=== PATIENT | male | born 1960 | race Caucasian/White ===

== ENCOUNTER → 2016-06-28 | Outpatient (CLI) | payer OTHER ==
[2016-06-28 10:44] LABS: ALT 39 U/L (21-72); AST 42 U/L (17-59); Alkaline Phosphatase 93 U/L (38-126); Anion Gap 13 mmol/L; Blood Urea Nitrogen 27 mg/dL (9-20); Calcium 9.5 mg/dL (8.4-10.2); Carbon Dioxide 21 mmol/L (22-30); Chloride 107 mmol/L (98-107); Cholesterol 127 mg/dL (<200); Glucose 148 mg/dL (74-99); HDL Cholesterol 46 mg/dL (40-60); Non-African American GFR(MDRD) 55 (>60 ml/min/1.73 sqM); Potassium 4.9 mmol/L (3.5-5.1); Sodium 141 mmol/L (137-145); Total Bilirubin 0.8 mg/dL (0.2-1.3); Total Protein 8.2 g/dL (6.3-8.2); Triglycerides 175 mg/dL (<150)
== END | disposition home or self-care (01) ==
LOC: LABWHC1 09:36
PROVIDERS: ATTEND Internal Medicine Interventional Cardiology
DX: E78.2 Mixed hyperlipidemia (principal)
CPT/HCPCS: 36415; 80053; 80061

== ENCOUNTER → 2016-12-26 | Outpatient (CLI) | payer OTHER ==
[2016-12-26 10:39] LABS: ALT 52 U/L (21-72); AST 36 U/L (17-59); Alkaline Phosphatase 81 U/L (38-126); Anion Gap 11 mmol/L; Blood Urea Nitrogen 26 mg/dL (9-20); Calcium 9.4 mg/dL (8.4-10.2); Carbon Dioxide 21 mmol/L (22-30); Chloride 110 mmol/L (98-107); Cholesterol 116 mg/dL (<200); Glucose 149 mg/dL (74-99); HDL Cholesterol 47 mg/dL (40-60); Non-African American GFR(MDRD) 59 (>60 ml/min/1.73 sqM); Potassium 5.4 mmol/L (3.5-5.1); Sodium 142 mmol/L (137-145); Total Bilirubin 0.4 mg/dL (0.2-1.3); Total Protein 8.1 g/dL (6.3-8.2)
== END | disposition home or self-care (01) ==
LOC: LABWHC1 09:33
PROVIDERS: ATTEND Internal Medicine Interventional Cardiology
DX: E78.2 Mixed hyperlipidemia (principal)
CPT/HCPCS: 36415; 80053; 80061

== ENCOUNTER 2017-05-04 10:04 | Emergency (ER) | payer OTHER ==
[2017-05-04 10:48] LABS: Glucose,Whole Blood 178 mg/dL (75-99)
[2017-05-04] MEDS ORDERED: METOCLOPRAMIDE 5 MG/ML 2 ML VIAL IVP STA (10:48)
[2017-05-04] MEDS ORDERED: MECLIZINE 12.5 MG TAB PO STA (10:48)
[2017-05-04] MEDS ORDERED: SODIUM CHLORIDE 0.9% 1,000 ML IV STA (10:48)
--- NOTE | 2017-05-04 10:52 | ED ---
General Adult HPI - General Chief complaint: Dizziness Stated complaint: Vomiting Time Seen by Provider: 05/04/17 10:43 Source: patient, RN notes reviewed Mode of arrival: ambulatory Limitations: no limitations - History of Present Illness Initial comments: Patient is a pleasant 56-year-old male presenting to the emergency department with dizziness. Onset was this morning. Symptoms worsen with upright position and head movement. Symptoms are mild at this time and improved with lying down. No history of similar symptoms previously. Patient describes a spinning type sensation. Patient did vomit a few times earlier when symptoms were worse. No confusion. No weakness. No speech problems. - Related Data Home Medications Medication Instructions Recorded Confirmed Aspirin 325 mg PO DAILY 03/09/16 05/04/17 Lisinopril [Zestril] 5 mg PO DAILY 03/09/16 05/04/17 Metoprolol Tartrate [Lopressor] 25 mg PO BID 03/09/16 05/04/17 Omeprazole [PriLOSEC] 20 mg PO BID 03/09/16 05/04/17 Simvastatin [Zocor] 80 mg PO HS 03/09/16 05/04/17 glipiZIDE [Glucotrol XL] 5 mg PO DAILY 03/09/16 05/04/17 Ergocalciferol [Vitamin D2] 50,000 unit PO Q7D 05/04/17 05/04/17 metFORMIN HCL [Glucophage] 500 mg PO BID 05/04/17 05/04/17 Previous Rx's Medication Instructions Recorded Clopidogrel [Plavix] 75 mg PO DAILY #90 tab 03/14/16 Nitroglycerin Sl Tabs [Nitrostat] 0.4 mg SUBLINGUAL Q5M PRN #25 tab 03/14/16 Allergies Allergy/AdvReac Type Severity Reaction Status Date / Time No Known Allergies Allergy Verified 05/04/17 11:04 Review of Systems ROS Statement: Those systems with pertinent positive or pertinent negative responses have been documented in the HPI. ROS Other: All systems not noted in ROS Statement are negative. Constitutional: Denies: fever Eyes: Denies: eye pain ENT: Denies: ear pain Respiratory: Denies: cough Cardiovascular: Denies: chest pain Endocrine: Denies: fatigue Gastrointestinal: Reports: vomiting. Denies: abdominal pain Genitourinary: Denies: dysuria Musculoskeletal: Denies: back pain Skin: Denies: rash Neurological: Reports: vertigo. Denies: headache, weakness, numbness, paresthesias, confusion Past Medical History Past Medical History: Coronary Artery Disease (CAD), Chest Pain / Angina, Diabetes Mellitus, GERD/Reflux, Hyperlipidemia, Hypertension, Myocardial Infarction ([place]), Skin Disorder Additional Past Medical History / Comment(s): states "I feel something is wrong in my chest",SOB w/ exertion,psoriasis to analilia hands and elbows Last Myocardial Infarction Date:: 2005? History of Any Multi-Drug Resistant Organisms: None Reported Past Surgical History: Cholecystectomy, Heart Catheterization With Stent Additional Past Surgical History / Comment(s): heart stent,colonoscopy Past Anesthesia/Blood Transfusion Reactions: No Reported Reaction Date of Last Stent Placement:: 2005? Past Psychological History: No Psychological Hx Reported Smoking Status: Former smoker Past Alcohol Use History: Occasional Past Drug Use History: None Reported - Past Family History Mother Family Medical History: Diabetes Mellitus, Hyperlipidemia, Hypertension, Myocardial Infarction ([place]) Father Family Medical History: No Reported History General Exam Limitations: no limitations General appearance: alert, in no apparent distress Head exam: Present: atraumatic Eye exam: Present: normal appearance, PERRL, EOMI. Absent: nystagmus ENT exam: Present: normal oropharynx Neck exam: Present: normal inspection Respiratory exam: Present: normal lung sounds bilaterally Cardiovascular Exam: Present: regular rate, normal rhythm GI/Abdominal exam: Present: soft. Absent: tenderness Extremities exam: Present: normal inspection. Absent: pedal edema, calf tenderness Neurological exam: Present: alert, oriented X3, CN II-XII intact. Absent: motor sensory deficit Expanded Patient oriented to: Present: person, place, time Speech: Present: fluid speech Cranial nerves: EOM's Intact: Normal, Facial Sensation: Normal Sensory exam: Upper Extremity Light Touch: Normal, Lower Extremity Light Touch: Normal Motor strength exam: RUE: 5, LUE: 5, RLE: 5, LLE: 5 Eye Response: (4) open spontaneously Motor Response: (6) obeys commands Verbal Response: (5) oriented Psychiatric exam: Present: normal affect, normal mood Skin exam: Present: normal color Course Vital Signs 05/04/17 05/04/17 05/04/17 10:16 11:21 11:57 Temperature 97.0 F L Pulse Rate 83 83 63 Respiratory 20 18 18 Rate Blood Pressure 204/106 165/96 172/85 O2 Sat by Pulse 99 99 98 Oximetry EKG Findings - EKG Comments: EKG Findings:: Normal sinus rhythm 78. MS 168. QRS 82. QT 378. QTC 4:30. Normal axis. Low QRS complex. Septal Q waves. No acute ST change. Medical Decision Making - Medical Decision Making Patient reevaluated and feels much better. Patient states he is near symptom- free. Patient able to ambulate without any difficulty. Patient updated on results and need for follow-up. - Lab Data Result diagrams: 05/04/17 10:50 05/04/17 10:50 Lab Results 05/04/17 05/04/17 05/04/17 Range/Units 10:30 10:50 10:50 WBC 5.7 (3.8-10.6) k/uL RBC 3.66 L (4.30-5.90) m/uL Hgb 11.6 L (13.0-17.5) gm/dL Hct 35.6 L (39.0-53.0) % MCV 97.4 (80.0-100.0) fL MCH 31.6 (25.0-35.0) pg MCHC 32.5 (31.0-37.0) g/dL RDW 15.0 (11.5-15.5) % Plt Count 183 (150-450) k/uL Neutrophils % 75 % Lymphocytes % 13 % Monocytes % 7 % Eosinophils % 2 % Basophils % 1 % Neutrophils # 4.3 (1.3-7.7) k/uL Lymphocytes # 0.8 L (1.0-4.8) k/uL Monocytes # 0.4 (0-1.0) k/uL Eosinophils # 0.1 (0-0.7) k/uL Basophils # 0.0 (0-0.2) k/uL Sodium 141 (137-145) mmol/L Potassium 4.7 (3.5-5.1) mmol/L Chloride 108 H (98-107) mmol/L Carbon Dioxide 21 L (22-30) mmol/L Anion Gap 12 mmol/L BUN 23 H (9-20) mg/dL Creatinine 0.99 (0.66-1.25) mg/dL Est GFR (MDRD) Af Amer >60 (>60 ml/min/1.73 sqM) Est GFR (MDRD) Non-Af >60 (>60 ml/min/1.73 sqM) Glucose 186 H (74-99) mg/dL POC Glucose (mg/dL) 178 H (75-99) mg/dL POC Glu Manager Package ID Raymundo Motley Calcium 9.2 (8.4-10.2) mg/dL Total Bilirubin 0.4 (0.2-1.3) mg/dL AST 36 (17-59) U/L ALT 50 (21-72) U/L Alkaline Phosphatase 74 (38-126) U/L Total Protein 7.5 (6.3-8.2) g/dL Albumin 4.3 (3.5-5.0) g/dL - Radiology Data Radiology results: report reviewed (Computed tomography scan of the brain shows no acute process.) Disposition Clinical Impression: Vertigo Disposition: HOME SELF-CARE Condition: Stable Instructions: Dizziness (ED) Additional Instructions: Please follow-up to in the next day or 2 for recheck. Return for increased dizziness, confusion, weakness, speech from his, worsening or changing symptoms or other concerns. Referrals: Owen Gibson MD [Primary Care Provider] - 1-2 days Time of Disposition: 12:01
[2017-05-04 11:06] LABS: Basophils % (A) 1 %; Eosinophils # (A) 0.1 k/uL (0-0.7); Eosinophils % (A) 2 %; HCT 35.6 % (39.0-53.0); HGB 11.6 gm/dL (13.0-17.5); Lymphocytes # (A) 0.8 k/uL (1.0-4.8); Lymphocytes % (A) 13 %; MCH 31.6 pg (25.0-35.0); MCHC 32.5 g/dL (31.0-37.0); MCV 97.4 fL (80.0-100.0); Mean Platelet Volume 7.4; Monocytes # (A) 0.4 k/uL (0-1.0); Monocytes % (A) 7 %; Neutrophils # (A) 4.3 k/uL (1.3-7.7); Neutrophils % (A) 75 %; Platelet Count 183 k/uL (150-450); RBC 3.66 m/uL (4.30-5.90); WBC 5.7 k/uL (3.8-10.6)
[2017-05-04 11:16] LABS: ALT 50 U/L (21-72); AST 36 U/L (17-59); Albumin 4.3 g/dL (3.5-5.0); Alkaline Phosphatase 74 U/L (38-126); Anion Gap 12 mmol/L; Blood Urea Nitrogen 23 mg/dL (9-20); Calcium 9.2 mg/dL (8.4-10.2); Carbon Dioxide 21 mmol/L (22-30); Chloride 108 mmol/L (98-107); Glucose 186 mg/dL (74-99); Potassium 4.7 mmol/L (3.5-5.1); Sodium 141 mmol/L (137-145); Total Bilirubin 0.4 mg/dL (0.2-1.3); Total Protein 7.5 g/dL (6.3-8.2)
[2017-05-04 11:22] VITALS: RESP 18
--- NOTE | 2017-05-04 11:41 | CT ---
EXAMINATION TYPE: CT brain wo con DATE OF EXAM: 05/04/2017 COMPARISON: NONE HISTORY: Hx hypertension. Experiencing vomiting and dizziness. CT DLP: 1186 mGycm. Automated Exposure Control for Dose Reduction was Utilized. TECHNIQUE: CT scan of the head is performed without contrast. FINDINGS: There is no acute intracranial hemorrhage, mass effect, or midline shift identified. No suspicious extra axial fluid collection. The ventricles and sulci are within normal limits in size. The globes are intact. Scant mucosal thickening is seen within the maxillary sinuses. The remaining v isualized paranasal sinuses and mastoid air cells are well aerated. Prominent perivascular spaces are seen of the level of the inferior right basal ganglia. Calvarium is intact. IMPRESSION: No acute intracranial hemorrhage, mass effect, or midline shift is seen. No acute intrac ranial process.
[2017-05-04 12:09] VITALS: BP 161/86; PULSE 78; TEMP 97.8
== END 2017-05-04 12:14 | disposition home or self-care (01) ==
LOC: EC 10:04
DX: R42 Dizziness and giddiness (principal); R11.10 Vomiting, unspecified; E78.5 Hyperlipidemia, unspecified; I10 Essential (primary) hypertension; I25.10 Atherosclerotic heart disease of native coronary artery without angina pectoris; E11.9 Type 2 diabetes mellitus without complications; K21.9 Gastro-esophageal reflux disease without esophagitis; I25.2 Old myocardial infarction; Z87.891 Personal history of nicotine dependence; Z79.82 Long term (current) use of aspirin; Z79.84 Long term (current) use of oral hypoglycemic drugs; Z79.899 Other long term (current) drug therapy; Z86.79 Personal history of other diseases of the circulatory system; Z90.49 Acquired absence of other specified parts of digestive tract
CPT/HCPCS: 36415; 93005; 80053; 85025; 70450; 99284; 96374; 96361; J2765

== ENCOUNTER → 2017-09-04 | Outpatient (CLI) | payer OTHER ==
[2017-09-04 10:06] LABS: ALT 47 U/L (21-72); AST 44 U/L (17-59); Cholesterol 100 mg/dL (<200); HDL Cholesterol 37 mg/dL (40-60); LDL Cholesterol,Calculated 43 mg/dL (0-99); Triglycerides 101 mg/dL (<150)
== END | disposition home or self-care (01) ==
LOC: LABWHC1 09:25
PROVIDERS: ATTEND Internal Medicine Interventional Cardiology
DX: E78.2 Mixed hyperlipidemia (principal)
CPT/HCPCS: 36415; 80061; 84450; 84460

== ENCOUNTER → 2018-12-07 | Outpatient (CLI) | payer OTHER ==
[2018-12-07 16:55] LABS: Chol/HDL Ratio 2.84; LDL Cholesterol,Calculated 48.2 mg/dL (0.0-131.0); VLDL Calculation 34.8 mg/dL (5.00-40.00)
== END | disposition home or self-care (01) ==
LOC: LABWHC1 08:41
PROVIDERS: ATTEND Nurse Practitioner Adult Health
DX: E78.2 Mixed hyperlipidemia (principal)
CPT/HCPCS: 36415; 80061; 84450; 84460

== ENCOUNTER → 2019-06-12 | Outpatient (CLI) | payer OTHER ==
[2019-06-12 16:29] LABS: African American GFR (CKD) 94.4 (60.0-200.0); Albumin 4.5 g/dL (3.80-4.90); Albumin/Globulin Ratio 1.8 (1.60-3.17); Anion Gap 8.6 mmol/L (4.00-12.00); Calcium 9.3 mg/dL (8.7-10.3); Carbon Dioxide 23.4 mmol/L (21.6-31.8); Chol/HDL Ratio 2.47; Globulin 2.5 g/dL (1.6-3.3); Non-African American GFR(CKD) 81.4 (60.0-200.0); Potassium 4.9 mmol/L (3.5-5.5); Total Bilirubin 0.6 mg/dL (0.2-1.2)
== END | disposition home or self-care (01) ==
LOC: LABWHC1 10:14
PROVIDERS: ATTEND Internal Medicine Interventional Cardiology
DX: E78.2 Mixed hyperlipidemia (principal)
CPT/HCPCS: 36415; 80053; 80061

== ENCOUNTER 2019-12-01 07:36 | Emergency (ER) | payer MEDICARE, OTHER ==
[2019-12-01 07:45] VITALS: BP 144/86; PULSE 94; RESP 18; TEMP 98.4
[2019-12-01] MEDS ORDERED: KETOROLAC 15 MG/ML 1 ML VIAL IM STA (08:16)
--- NOTE | 2019-12-01 08:23 | ED ---
General Adult HPI - General Chief complaint: Back Pain/Injury Stated complaint: Left leg/back pain Time Seen by Provider: 12/01/19 08:02 Source: patient, RN notes reviewed Mode of arrival: wheelchair Limitations: no limitations - History of Present Illness Initial comments: 58-year-old male with a past medical history CAD, diabetes mellitus, hyperlipide to, hypertension, GERD, [place] presents to the emergency room for a chief complaint of low back pain. Patient reports that for the past 2 weeks he has had low back pain that radiates down the left leg. Patient reports that this worsens with movement. He has been seeing a chiropractor however does not seem to be helping. Patient denies any weakness of the lower extremities. Denies any bladder or bowel changes. Patient denies fevers or chills. Denies numbness or tingling in the saddle region. Patient reports that movement makes this pain worse. States that bending forward makes it worse.Patient has no other complaints at this time including shortness of breath, chest pain, abdominal pain, nausea or vomiting, headache, or visual changes. - Related Data Home Medications Medication Instructions Recorded Confirmed Aspirin 325 mg PO DAILY 03/09/16 05/04/17 Metoprolol Tartrate [Lopressor] 25 mg PO BID 03/09/16 05/04/17 Omeprazole [PriLOSEC] 20 mg PO BID 03/09/16 05/04/17 Simvastatin [Zocor] 80 mg PO HS 03/09/16 05/04/17 glipiZIDE [Glucotrol XL] 5 mg PO DAILY 03/09/16 05/04/17 lisinopriL [Zestril] 5 mg PO DAILY 03/09/16 05/04/17 Ergocalciferol [Vitamin D2] 50,000 unit PO Q7D 05/04/17 05/04/17 metFORMIN HCL [Glucophage] 500 mg PO BID 05/04/17 05/04/17 Previous Rx's Medication Instructions Recorded Clopidogrel [Plavix] 75 mg PO DAILY #90 tab 03/14/16 Nitroglycerin Sl Tabs [Nitrostat] 0.4 mg SUBLINGUAL Q5M PRN #25 tab 03/14/16 Meclizine [Antivert] 25 mg PO TID PRN #12 tab 05/04/17 HYDROcodone/APAP 5-325MG [[place] 1 tab PO Q6HR PRN #10 tab 12/01/19 5-325] Allergies Allergy/AdvReac Type Severity Reaction Status Date / Time No Known Allergies Allergy Verified 05/04/17 11:04 Review of Systems ROS Statement: Those systems with pertinent positive or pertinent negative responses have been documented in the HPI. ROS Other: All systems not noted in ROS Statement are negative. Past Medical History Past Medical History: Coronary Artery Disease (CAD), Chest Pain / Angina, Diabetes Mellitus, GERD/Reflux, Hyperlipidemia, Hypertension, Myocardial Infarction ([place]), Skin Disorder Additional Past Medical History / Comment(s): states "I feel something is wrong in my chest",SOB w/ exertion,psoriasis to analilia hands and elbows Last Myocardial Infarction Date:: 2005? History of Any Multi-Drug Resistant Organisms: None Reported Past Surgical History: Cholecystectomy, Heart Catheterization With Stent Additional Past Surgical History / Comment(s): heart stent,colonoscopy Past Anesthesia/Blood Transfusion Reactions: No Reported Reaction Date of Last Stent Placement:: 2005? Past Psychological History: No Psychological Hx Reported Smoking Status: Former smoker Past Alcohol Use History: Occasional Past Drug Use History: None Reported - Past Family History Mother Family Medical History: Diabetes Mellitus, Hyperlipidemia, Hypertension, Myocardial Infarction ([place]) Father Family Medical History: No Reported History General Exam Limitations: no limitations General appearance: alert, in no apparent distress Head exam: Present: atraumatic, normocephalic, normal inspection Eye exam: Present: normal appearance, PERRL, EOMI. Absent: scleral icterus, conjunctival injection, periorbital swelling ENT exam: Present: normal exam, mucous membranes moist Neck exam: Present: normal inspection, full ROM. Absent: tenderness, meningismus, lymphadenopathy Respiratory exam: Present: normal lung sounds bilaterally. Absent: respiratory distress, wheezes, rales, rhonchi, stridor Cardiovascular Exam: Present: regular rate, normal rhythm, normal heart sounds. Absent: systolic murmur, diastolic murmur, rubs, gallop, clicks GI/Abdominal exam: Present: soft, normal bowel sounds. Absent: distended, tenderness, guarding, rebound, rigid Back exam: Absent: full ROM (Patient has about 45 flexion of the lumbar spine.), CVA tenderness (R), CVA tenderness (L), paraspinal tenderness, vertebral tenderness Neurological exam: Present: alert, normal gait (Patient is able to ambulate) Course Vital Signs 12/01/19 07:43 Temperature 98.4 F Pulse Rate 94 Respiratory 18 Rate Blood Pressure 144/86 O2 Sat by Pulse 100 Oximetry Medical Decision Making - Medical Decision Making Patient presents with back pain radiating to the left leg. No red flag symptoms. Patient has been seeing a chiropractor. Patient's pain is consistent with lumbar radiculopathy. I did recommend he see orthopedics for MRI and further management and he is agreeable to this. Patient will not be given steroid as he is a type II diabetic and this will cause hyperglycemia. I did prescribe patient [place] for pain. I recommended he return here for any worsening symptoms. I did stress that is reporting he follows up to determine the cause of this pain. Disposition Clinical Impression: Lumbar radiculopathy, Back pain Disposition: HOME SELF-CARE Condition: Good Instructions (If sedation given, give patient instructions): Acute Low Back Pain (ED), Lower Back Exercises (ED) Additional Instructions: Please take [place] for pain but do not drive or operate machinery while taking this. Please follow-up with orthopedics in one to 2 days. Return here to the emergency room if you have any worsening symptoms such as bladder or bowel changes, numbness or tingling in the groin region, fevers, or difficulty walking. Prescriptions: HYDROcodone/APAP 5-325MG [[place] 5-325] 1 tab PO Q6HR PRN #10 tab PRN Reason: Pain Is patient prescribed a controlled substance at d/c from ED?: Yes When asked, does pt state using other controlled substances?: No If prescribed controlled substance>3 days was MAPS reviewed?: Prescribed <3 Days If opioid is for acute pain is fill amount 7 days or less?: Yes If Rx opioid, was Start Talking consent form obtained?: Yes Referrals: Judi Monreal PAC [REFERRING] - 1-2 days Tj Ely DO [Doctor of Osteopathic Medicine] - 1-2 days Time of Disposition: 08:23
== END 2019-12-01 08:45 | disposition home or self-care (01) ==
LOC: EC 07:36
DX: M54.16 Radiculopathy, lumbar region (principal); I25.119 Atherosclerotic heart disease of native coronary artery with unspecified angina pectoris; I10 Essential (primary) hypertension; E11.9 Type 2 diabetes mellitus without complications; E78.5 Hyperlipidemia, unspecified; I25.2 Old myocardial infarction; K21.9 Gastro-esophageal reflux disease without esophagitis; Z79.82 Long term (current) use of aspirin; Z79.84 Long term (current) use of oral hypoglycemic drugs; Z79.899 Other long term (current) drug therapy; Z87.891 Personal history of nicotine dependence; Z95.5 Presence of coronary angioplasty implant and graft
CPT/HCPCS: 99283; 96372; J1885

== ENCOUNTER → 2019-12-26 | Outpatient (CLI) | payer MEDICARE, OTHER ==
--- NOTE | 2019-12-27 05:58 | MR ---
EXAMINATION TYPE: MR lumbar spine wo con DATE OF EXAM: 12/26/2019 COMPARISON: NONE HISTORY: Low back pain, radiculopathy, spondylosis, spondylolisthesis all per order. Low back pain fo r 1.5 months. TECHNIQUE: Multiplanar, multisequence imaging of the lumbar spine is performed without IV contrast. FINDINGS: Sagittal images of the lumbar spine show vertebral body heights to appear satisfactory. Gr brandon 1 anterolisthesis L5 on S1. Bilateral pars defects L5 level are noted. Multilevel disc desiccatio n. [id number] multilevel disc space narrowing greatest at L5-S1 level where there is heterogene ous bony type II endplate changes and vacuum disc phenomenon present. The conus medullaris is normal in position and signal ending at T12-L1 disc space level. Axial images at T12-L1 level shows tiny central disc protrusion mildly effacing the anterior thecal s ac with mild facet arthropathy bilaterally. Axial images at L1-L2 levels show more moderate broad disc bulge effacing the anterior thecal sac wit h mild facet degenerative changes bilaterally. Axial images at the L2-L3 levels with mild facet degenerative changes bilaterally. There is mild broa d disc bulge. Spinal canal is preserved. Axial images at the L3-L4 levels show yrwq-[id number] facet degenerative changes and ligamentum flav um hypertrophy. There is came-vr-zjtneldu broad disc bulge. There is effacement of the anterior theca l sac. There is mild bilateral anterior inferior neural foraminal narrowing. Axial images at the L4-L5 levels with moderate facet degenerative changes bilaterally. There is mild broad disc bulge with left foraminal disc protrusion component. There is asymmetric mild left-sided a nterior inferior neural foraminal narrowing. Axial images at the L5-S1 level show moderate broad disc bulge with left foraminal disc protrusion co mponent. There is mild facet arthropathy. There is increased epidural fat at this level. There is mod erate to severe left-sided neural foraminal narrowing due to spondylolisthesis and disc herniation ef facing the anterior aspect of the left L5 nerve axial image 2 and sagittal image 2. The right L5 nerv e is prominent or enlarged axial image 5 and sagittal image 11 with adjacent adjacent bone. Moderate inferior neural foraminal narrowing noted. No suspicious incidental retroperitoneal findings. IMPRESSION: Spondylosis with spondylolisthesis L5-S1 level. Multilevel degenerative changes greatest L5-S1 level as detailed above.
== END | disposition home or self-care (01) ==
LOC: RADMRIMAIN 06:07
PROVIDERS: ATTEND Physical Medicine & Rehabilitation
DX: M43.17 Spondylolisthesis, lumbosacral region (principal); M47.27 Other spondylosis with radiculopathy, lumbosacral region; M16.0 Bilateral primary osteoarthritis of hip; E11.9 Type 2 diabetes mellitus without complications
CPT/HCPCS: 72148

== ENCOUNTER → 2020-01-15 | Outpatient (CLI) | payer MEDICARE, OTHER ==
[2020-01-15 18:44] LABS: Chol/HDL Ratio 2.69; LDL Cholesterol,Calculated 42.4 mg/dL (0.0-131.0); VLDL Calculation 18.6 mg/dL (5.00-40.00)
== END | disposition home or self-care (01) ==
LOC: LABWHC1 07:42
PROVIDERS: ATTEND Nurse Practitioner Adult Health
DX: E78.2 Mixed hyperlipidemia (principal)
CPT/HCPCS: 36415; 80061

== ENCOUNTER → 2020-06-28 | Outpatient (CLI) | payer MEDICARE, OTHER ==
[2020-06-28 15:10] LABS: Basophils # (A) 0.06 X 10*3/uL (0.00-0.10); Eosinophils # (A) 0.24 X 10*3/uL (0.04-0.35); Eosinophils % (A) 3.8 %; HCT 39.9 % (39.6-50.0); HGB 12.5 g/dL (13.0-17.0); Lymphocytes # (A) 2.45 X 10*3/uL (0.90-5.00); Lymphocytes % (A) 39.1 %; MCH 28.4 pg (27.0-32.0); MCHC 31.3 g/dL (32.0-37.0); MCV 90.7 fL (80.0-97.0); Mean Platelet Volume 8.6 fL (9.5-12.2); Monocytes # (A) 0.69 X 10*3/uL (0.20-1.00); Neutrophils % (A) 44.8 %; Platelet Count 328 X 10*3/uL (140-440); RDW 14.8 % (11.5-14.5); WBC 6.26 X 10*3/uL (4.50-10.00)
[2020-06-28 16:11] LABS: African American GFR (CKD) 93.7 (60.0-200.0); Albumin 4.6 g/dL (3.80-4.90); Albumin/Globulin Ratio 1.48 (1.60-3.17); Anion Gap 6.4 mmol/L (4.00-12.00); Calcium 9.5 mg/dL (8.7-10.3); Carbon Dioxide 27.6 mmol/L (21.6-31.8); Chol/HDL Ratio 3.13; Globulin 3.1 g/dL (1.6-3.3); LDL Cholesterol,Calculated 56.2 mg/dL (0.0-131.0); Non-African American GFR(CKD) 80.9 (60.0-200.0); Potassium 4.7 mmol/L (3.5-5.5); Total Bilirubin 0.3 mg/dL (0.2-1.2); Total Protein 7.7 g/dL (6.2-8.2); VLDL Calculation 28.8 mg/dL (5.00-40.00)
[2020-06-28 16:19] LABS: PSA Annual Screen 0.7 ng/mL (0.0-4.0)
[2020-06-28 16:46] LABS: Hemoglobin A1C 7.4 % (4.0-6.0)
== END | disposition home or self-care (01) ==
LOC: LABWHC1 08:27
PROVIDERS: ATTEND Nurse Practitioner Adult Health
DX: E78.2 Mixed hyperlipidemia (principal); I10 Essential (primary) hypertension; Z12.5 Encounter for screening for malignant neoplasm of prostate; Z20.828 Contact with and (suspected) exposure to other viral communicable diseases
CPT/HCPCS: 80061; 80053; 85025; 83036; 86769; 36415; G0103

== ENCOUNTER → 2021-02-14 | Outpatient (CLI) | payer MEDICARE, OTHER ==
[2021-02-14 20:36] LABS: Chol/HDL Ratio 2.1 Ratio; HDL Cholesterol 50.4 mg/dL (40.00-60.00); LDL Cholesterol,Calculated 40.5 mg/dL (0.0-131.0); Triglycerides 75.6 mg/dL (0.00-149.00); VLDL Calculation 15.12 mg/dL (5.00-40.00)
== END | disposition home or self-care (01) ==
LOC: LABWHC1 08:10
PROVIDERS: ATTEND Nurse Practitioner Adult Health
DX: E78.2 Mixed hyperlipidemia (principal)
CPT/HCPCS: 36415; 80061; 84450; 84460

== ENCOUNTER → 2022-04-28 | Outpatient (CLI) | payer MEDICARE, OTHER ==
[2022-04-28 15:53] LABS: ALT 20 U/L (10-49); AST 23 U/L (14-35); Albumin 4.2 g/dL (3.8-4.9); Alkaline Phosphatase 114 U/L (41-126); Blood Urea Nitrogen 21.9 mg/dL (9.0-27.0); Calcium 9.5 mg/dL (8.7-10.3); Carbon Dioxide 20.5 mmol/L (20.0-27.5); Chloride 108 mmol/L (96-109); Chol/HDL Ratio 2.34 Ratio; Globulin 3.3 g/dL (1.6-3.3); Glucose 136 mg/dL (70-110); LDL Cholesterol,Calculated 41.6 mg/dL (0.0-131.0); Non-African American GFR(CKD) 50.9 (60.0-200.0); Potassium 5.4 mmol/L (3.5-5.5); Sodium 140 mmol/L (135-145); Total Protein 7.5 g/dL (6.2-8.2); VLDL Calculation 19.58 mg/dL (5.00-40.00)
== END | disposition home or self-care (01) ==
LOC: LABWHC1 09:34
PROVIDERS: ATTEND Nurse Practitioner Adult Health
DX: I10 Essential (primary) hypertension (principal); E78.2 Mixed hyperlipidemia
CPT/HCPCS: 36415; 80053; 80061